=== PATIENT | male | born 1975 | race Caucasian/White ===

== ENCOUNTER 2021-11-03 10:22 | Emergency (ER) | payer OTHER, SELFPAY ==
[2021-11-03 10:41] VITALS: BP 154/110; PULSE 120; RESP 18; TEMP 36.3; O2SAT 97
--- NOTE | 2021-11-03 11:42 | ED.PSYCH ---
HPI - Psych General Chief Complaint: Psychiatric Symptoms Stated Complaint: pcc referral feels unsafe Time Seen by Provider: 11/03/21 11:11 Source: patient Mode of arrival: ambulatory Limitations: no limitations History of Present Illness HPI Narrative: Patient comes emergency room complaining of feeling overwhelmed. Patient states that his recently left him, moved out of the house. Patient feeling overwhelmed, states that he has had thoughts of hurting himself but he would not do that because he has two children. Seems that patient has alcohol a problems. Seems that he stopped drinking alcohol 2 weeks ago cultured. Related Data Home Medications Medication Instructions Recorded Confirmed bupropion HCl 150 mg 24 hr tablet, 2 tab PO DAILY 11/03/21 11/03/21 extended release cyclobenzaprine 10 mg tablet 1 tab PO TID 11/03/21 11/03/21 omeprazole 20 mg capsule,delayed 1 cap PO DAILY 11/03/21 11/03/21 release zolpidem 10 mg tablet 1 tab PO BEDTIME PRN 11/03/21 11/03/21 Allergies Allergy/AdvReac Type Severity Reaction Status Date / Time No Known Allergies Allergy Verified 11/03/21 11:42 Review of Systems Review of Systems: Constitutional : No Weight loss, No Fever, No Chills, No Night Sweats, No Fatigue, No Malaise ENT/Mouth : No Hearing loss, No Ear Pain, No Nasal Congestion, No Sinus Pain, No Hoarseness, No sore throat, No Rhinorrhea, No Swallowing Difficulty Eyes: No Eye Pain, No Swelling, No Redness, No Foreign Body, No Discharge, No Vision Changes Cardiovascular : No Chest Pain, No SOB, No Dyspnea on Exertion, No Orthopnea, No Edema, No Palpitations, history of constant tachycardia per patient Respiratory : No Cough, No Sputum, No Wheezing, No Smoke Exposure, No Dyspnea Gastrointestinal : No Nausea, No Vomiting, No Diarrhea, No Constipation, No abdominal Pain, No Hematochezia, No Melena Genitourinary : no irregular bleeding, No Dysuria, No Urinary Frequency, No Hematuria, No Urinary Incontinence, No Urgency, No Flank Pain, No Urinary Flow Changes, No Hesitancy Musculoskeletal : No joint pain, No Myalgias, No Joint Swelling Skin : No Skin Lesions, No rash Neuro : No Weakness, No Numbness, No Paresthesias, No Loss of Consciousness, No Dizziness, No Headache Psych : Feeling anxious, depressed, vague suicidal ideation, no homicidal ideation, recently stopped drinking that her to approximately 2 weeks ago Heme/Lymph: No Bruising, No Bleeding,No Lymphadenopathy Endocrine : No Polyuria, No Polydipsia, No Temperature Intolerance PMF Past Medical History Medical History (Updated 11/03/21 @ 17:17 by Carley Love) GERD (gastroesophageal reflux disease) Social History Social History Advance Directives: No Advance Directives Information Provided: No Healthcare Proxy: No Guardian: No Physical Exam Vital Signs: Vital Signs: Last Vital Signs Temp 98.9 F 11/03/21 16:25 Pulse 105 H 11/03/21 16:25 Resp 18 11/03/21 10:41 BP 155/109 H 11/03/21 16:25 Pulse Ox 97 11/03/21 16:25 BMI result Body Mass Index 30.0 Const: Other: Appearance: Alert. Oriented X3. No acute distress. Eyes: Pupils equal, round and reactive to light. ENT: Pharynx normal. Neck: Normal inspection. Neck supple. No lymph nodes noted. No crepitus CVS: Tachycardic, per patient at baseline. Pulses normal. Normal S1 and S2 Respiratory: No respiratory distress. Breath sounds normal. No Wheezing. No rales Abdomen: Soft and nontender. No rigidity. No distention. good BS x4 Skin: Skin warm and dry. Normal skin color. Normal skin turgor. Extremities: No lower extremity edema. No lower extremity edema. No Lacerations. No Rash Neuro: Oriented X 3. No motor deficit. No sensory deficit. Moving all extermities. No slurred speech. Cranial nerves 2-12 grossly intact Psych: Calm, cooperative, normal speech, coherent Course Course Course Narrative: [facility] network consult pending. Physician observation started at 11:45 [facility] evaluated the patient, patient grudgingly accepted to go inpatient Patient changes mind. Patient would like to go for an outpatient treatment. Patient was never suicidal or homicidal. Patient told the care team that he initially said in triage that he would not feel safe because he was instructed by his PCP to say so in order to get admitted. Patient thought he was going to get admitted straight to detox program. When he found out that it was a psychiatric admission, Patient changed his mind. As mentioned above, patient is not suicidal or homicidal. The care team talked to the patient's family . They all agree that patient can be returning home, they feel safe doing so. Patient has an appointment for detox program tomorrow. Everybody including the patient, family, therapist agreed that patient can be discharged. MDM - Psych Lab Data Labs: Lab Results 11/03/21 11/03/21 Range/Units 12:57 12:58 Urine Opiates Screen Not Detected (Not Detect) Urine Fentanyl Screen Not Detected (Not Detect) Ur Barbiturates Screen Not Detected (Not Detect) Ur Phencyclidine Scrn Not Detected (Not Detect) Ur Amphetamines Screen Not Detected (Not Detect) U Benzodiazepines Scrn Not Detected (Not Detect) Urine Cocaine Screen Not Detected (Not Detect) U Marijuana (THC) Screen Not Detected (Not Detect) COVID-19 ([facility]) Negative (Negative) COVID-19 Clin Com See Note Discharge Plan Discharge Clinical Impression: Alcohol dependence, Depression Patient Disposition: Home, Self-Care Instructions: Alcohol Dependence (ED), Depression (ED) Additional Instructions: Please follow-up with your primary care physician tomorrow. If you have any worsening or new symptoms, please return to the emergency room or call 911 Prescriptions: No Action cyclobenzaprine 10 mg tablet 1 tab PO TID RF: 0 omeprazole 20 mg capsule,delayed release(DR/EC) 1 cap PO DAILY RF: 0 zolpidem 10 mg tablet 1 tab PO BEDTIME PRN (Reason: Insomnia) RF: 0 bupropion HCl 150 mg tablet extended release 24 hr 2 tab PO DAILY RF: 0
[2021-11-03 13:19] LABS: Amphetamine Screen Urine Not Detected (Not Detect); Barbiturates, Urine Not Detected (Not Detect); Benzodiazepines Screen Urine Not Detected (Not Detect); Cannabinoid Screen Urine Not Detected (Not Detect); Cocaine Screen Urine Not Detected (Not Detect); Fentanyl, urine Not Detected (Not Detect); Opiate Screen Urine Not Detected (Not Detect); Phencyclidine Screen Urine Not Detected (Not Detect)
[2021-11-03 13:19] LABS: COVID-19 Test Negative (Negative); IDNOW Serial# 9DD0AD1C
[2021-11-03 16:25] VITALS: BP 155/109; PULSE 105; TEMP 37.2; O2SAT 97
--- NOTE | 2021-11-03 18:07 | PC.NURSE ---
updated client med rec
--- NOTE | 2021-11-03 19:08 | MHC.CARE ---
Patient disposition has changed multiple times throughout the day and at this writing, CARE Team continues to receive information from collaterals to determine the safest plan.
== END 2021-11-03 19:46 | disposition home or self-care (01) ==
PROVIDERS: Physician Assistant; Emergency Provider Emergency Medicine; PCP Neuromusculoskeletal Medicine, Sports Medicine
DX: F10.20 Alcohol dependence, uncomplicated (principal); Y90.9 Presence of alcohol in blood, level not specified; F32.A Depression, unspecified; Z20.822 Contact with and (suspected) exposure to COVID-19; Z72.89 Other problems related to lifestyle; Z63.0 Problems in relationship with spouse or partner; Z63.5 Disruption of family by separation and divorce; Z79.899 Other long term (current) drug therapy
CPT/HCPCS: 36415; 80307; 87635; 99284